=== PATIENT | male | born 1955 | race Caucasian/White ===

== ENCOUNTER 2019-04-15 09:29 | Outpatient (REF) | payer MEDICAID, SELFPAY ==
[2019-04-15 13:43] LABS: ALT 31 U/L (12-78); AST 19 U/L (15-37); Albumin 3.3 g/dL (3.4-5.0); Alkaline Phosphatase 79 U/L (46-116); Anion Gap 8.7 mmol/L (3-11); BUN 11 mg/dL (7-18); Bilirubin, Total 0.4 mg/dL (0.2-1.0); CO2 29.3 mmol/L (21.0-32.0); CREATININE 1.07 mg/dL (0.70-1.30); Calcium 8.4 mg/dL (8.5-10.1); Chloride 101 mmol/L (98-107); Glucose 265 mg/dL (70-100); Potassium 4.2 mmol/L (3.5-5.1); Sodium 139 mmol/L (136-145); Total Protein 6.7 g/dL (6.4-8.2)
[2019-04-16 10:34] LABS: Hepatitis C Ab w Rflx HCV PCR Negative (NEGAT)
[2019-04-16 11:32] LABS: Lyme Ab w Rflx to Lyme Confirm Negative
== END 2019-04-15 09:49 ==
LOC: NCHCN 09:29
PROVIDERS: PCP Nurse Practitioner Family; Visit Provider Nurse Practitioner Family
DX: R06.02 Shortness of breath (principal); F32.9 Major depressive disorder, single episode, unspecified; E78.5 Hyperlipidemia, unspecified; E11.65 Type 2 diabetes mellitus with hyperglycemia; I25.10 Atherosclerotic heart disease of native coronary artery without angina pectoris; F17.200 Nicotine dependence, unspecified, uncomplicated; G89.29 Other chronic pain; E66.9 Obesity, unspecified; Z11.59 Encounter for screening for other viral diseases
CPT/HCPCS: 80053; 86803; 86618

== ENCOUNTER 2021-06-29 15:12 | Outpatient (REF) | payer OTHER, SELFPAY ==
[2021-06-29 14:31] LABS: Calculated LDL 8 mg/dL (<100); Cholesterol 87 mg/dL (<200); HDL Cholesterol 27 mg/dL (40-60); Triglyceride 263 mg/dL (<150)
[2021-06-30 00:49] LABS: Vitamin D 25 Total 29.2 ng/mL (30-100)
== END 2021-06-29 15:13 | disposition home or self-care (01) ==
LOC: NCHCN 15:12
PROVIDERS: PCP Nurse Practitioner Family; Visit Provider Family Medicine
DX: E78.5 Hyperlipidemia, unspecified (principal); E55.9 Vitamin D deficiency, unspecified
CPT/HCPCS: 80061; 82306

== ENCOUNTER 2021-09-28 22:11 | Outpatient (REF) | payer OTHER, MEDICAID, SELFPAY ==
[2021-09-30 16:19] LABS: COVID-19 RT-PCR UVMMC Result Positive (Negative)
== END 2021-09-28 22:12 | disposition home or self-care (01) ==
LOC: NCHCN 22:11
PROVIDERS: PCP Nurse Practitioner Family; Visit Provider Family Medicine
DX: Z20.822 Contact with and (suspected) exposure to COVID-19 (principal); R05.8 Other specified cough
CPT/HCPCS: U0003

== ENCOUNTER 2023-06-27 11:13 | Outpatient (REF) | payer OTHER, MEDICAID, SELFPAY ==
[2023-06-27 15:12] LABS: HCT 46.8 % (40.0-50.0); HGB 15.9 g/dL (13.5-17.5); MCH 31.1 pg (27.0-33.0); MCV 92 fL (80-95); Platelet Count 302 10^3/uL (130-400); RBC 5.11 10^6/uL (4.36-5.78); RDW 14.2 % (11.8-14.1); RDW-SD 47.6 fL
[2023-06-27 15:36] LABS: ALT 22 U/L (16-63); AST 21 U/L (15-37); Albumin 3.3 g/dL (3.4-5.0); Alkaline Phosphatase 89 U/L (46-116); BUN 12 mg/dL (7-18); Bilirubin, Total 0.7 mg/dL (0.2-1.0); Calcium 8.7 mg/dL (8.5-10.1); Calculated LDL 4 mg/dL (<100); Chloride 102 mmol/L (98-107); Cholesterol 91 mg/dL (<200); Estimated GFR 81.98 (mL/min/1.73m2); Glucose 127 mg/dL (74-106); HDL Cholesterol 29 mg/dL (40-60); Potassium 4.2 mmol/L (3.5-5.1); Sodium 141 mmol/L (136-145); Total Protein 6.8 g/dL (6.4-8.2); Triglyceride 291 mg/dL (<150)
== END 2023-06-27 11:14 | disposition home or self-care (01) ==
LOC: NCHCN 11:13
PROVIDERS: PCP Nurse Practitioner Family; Visit Provider Family Medicine
DX: E11.65 Type 2 diabetes mellitus with hyperglycemia (principal); E78.5 Hyperlipidemia, unspecified; E55.9 Vitamin D deficiency, unspecified
CPT/HCPCS: 80053; 80061; 82306; 85027

== ENCOUNTER 2024-08-20 15:25 | Outpatient (REF) | payer OTHER, MEDICAID, SELFPAY ==
[2024-08-20 16:40] LABS: ALT 16 U/L (16-63); AST 16 U/L (15-37); Albumin 3.3 g/dL (3.4-5.0); Alkaline Phosphatase 81 U/L (46-116); Anion Gap 7.4 mmol/L (3-11); BUN 11 mg/dL (7-18); Bilirubin, Total 0.53 mg/dL (0.2-1.0); CO2 31.6 mmol/L (21.0-32.0); Calcium 8.9 mg/dL (8.5-10.1); Calculated LDL 41 mg/dL (<100); Chloride 103 mmol/L (98-107); Cholesterol 106 mg/dL (<200); Estimated GFR 81.47 (mL/min/1.73m2); Glucose 164 mg/dL (74-106); HDL Cholesterol 41 mg/dL (40-60); Potassium 4.7 mmol/L (3.5-5.1); Sodium 142 mmol/L (136-145); Total Protein 6.7 g/dL (6.4-8.2); Triglyceride 123 mg/dL (<150)
[2024-08-20 17:22] LABS: Hemoglobin A1C 6.4 % (<5.7)
== END 2024-08-20 15:26 | disposition home or self-care (01) ==
LOC: NCHCN 15:25
PROVIDERS: PCP Nurse Practitioner Family; Visit Provider Family Medicine
DX: E11.9 Type 2 diabetes mellitus without complications (principal)
CPT/HCPCS: 80053; 80061; 83036

== ENCOUNTER 2025-02-27 11:55 | Outpatient (REF) | payer OTHER, MEDICAID, SELFPAY ==
[2025-02-27 14:55] LABS: COMMENT (LAB VIEW ONLY) 113.57 mg/dL; Microalb ug/mg Crea 19.9 ug/mg Cr
== END 2025-02-27 11:56 | disposition home or self-care (01) ==
LOC: NCHCN 11:55
PROVIDERS: PCP Nurse Practitioner Family; Visit Provider Family Medicine
DX: E11.9 Type 2 diabetes mellitus without complications (principal)
CPT/HCPCS: 82043; 82570

== ENCOUNTER 2025-06-19 16:14 | Outpatient (REF) | payer OTHER, MEDICAID, SELFPAY ==
[2025-06-19 15:09] LABS: Hemoglobin A1C 6.7 % (<5.7)
[2025-06-19 15:12] LABS: ALT 24 U/L (16-63); AST 21 U/L (15-37); Albumin 3.5 g/dL (3.4-5.0); Alkaline Phosphatase 77 U/L (46-116); Anion Gap 8.8 mmol/L (3-11); BUN 6 mg/dL (7-18); Bilirubin, Total 0.7 mg/dL (0.2-1.0); CO2 30.2 mmol/L (21.0-32.0); Calcium 8.7 mg/dL (8.5-10.1); Calculated LDL 41 mg/dL (<100); Chloride 98 mmol/L (98-107); Cholesterol 107 mg/dL (<200); Estimated GFR 99.12 (mL/min/1.73m2); Glucose 131 mg/dL (74-106); HDL Cholesterol 37 mg/dL (>or=40); Potassium 4.0 mmol/L (3.5-5.1); Sodium 137 mmol/L (136-145); Total Protein 6.7 g/dL (6.4-8.2); Triglyceride 145 mg/dL (<150)
[2025-06-19 15:27] LABS: GGT 46 U/L (15-85)
[2025-06-22 08:04] LABS: PSA, Diagnostic 1.6 ng/mL (<=6.5)
== END 2025-06-19 16:15 | disposition home or self-care (01) ==
LOC: NCHCN 16:14
PROVIDERS: PCP Nurse Practitioner Family; Visit Provider Family Medicine
DX: Z00.00 Encounter for general adult medical examination without abnormal findings (principal); F10.10 Alcohol abuse, uncomplicated; E11.65 Type 2 diabetes mellitus with hyperglycemia
CPT/HCPCS: 80053; 80061; 82977; 83036; 84153